=== PATIENT | male | born 1980 | race African-American/Black ===

== ENCOUNTER 2022-02-28 10:21 | Emergency (ER) | payer SELFPAY ==
[2022-02-28] MEDS ORDERED: Iopamidol-370 76% 500 ML 1 ML ONE (11:01)
[2022-02-28 11:34] LABS: #Eosinphils 0.1 thou/uL (0.0-0.7); #Lymphocytes 1.9 thou/uL (1.20-3.40); #Monocytes 0.5 thou/uL (0.11-0.59); #Neutrophils 4.2 thou/uL (1.40-6.50); %Basophils 0.6 % (0.0-1.0); %Lymphocytes 28.6 % (21.0-51.0); %Monocytes 6.9 % (0.0-10.0); %Neutrophils 61.8 % (42.0-75.0); Hemoglobin 17.4 g/dL (14.0-18.0); Mean Corpuscular HGB CONC 33.3 g/dL (32.0-36.0); Mean Corpuscular Hemoglobin 31.2 pg (27.0-31.0); Mean Corpuscular Volume 93.8 fL (78.0-98.0); Mean Platelet Volume 8.6 fL (7.4-10.4); Platelet Count 150 thou/uL (130-400); RBC Distribution Width 12.4 % (11.5-14.5); Red Blood Cell (RBC) Count 5.57 mill/uL (4.70-6.10); White Blood Cell (WBC) Count 6.8 thou/uL (4.8-10.8)
[2022-02-28 11:52] LABS: ALT (SGPT) 17 U/L (8-55); AST (SGOT) 20 U/L (5-34); Albumin 4.6 g/dL (3.5-5.0); Alkaline Phosphatase 42 U/L (40-110); Anion Gap 13 mmol/L (10-20); BUN (Urea Nitrogen) 11 mg/dL (8.9-20.6); Bilirubin, Total 0.4 mg/dL (0.2-1.2); Calc. Creatinine Clearance 0 mL/min (70-130); Calcium 9.7 mg/dL (7.8-10.44); Carbon Dioxide 24 mmol/L (22-29); Chloride 104 mmol/L (98-107); Estimated GFR 104; Globulin 3.6 g/dL (2.4-3.5); Glucose 99 mg/dL (70-105); Potassium 3.9 mmol/L (3.5-5.1); Protein, Total 8.2 g/dL (6.0-8.3); Sodium 137 mmol/L (136-145)
== END 2022-02-28 14:11 | disposition home or self-care (01) ==
LOC: ERS 10:21
DX: K11.5 Sialolithiasis (principal)
CPT/HCPCS: 70491; 80053; 85025; Q9967